=== PATIENT | male | born 1965 | race Caucasian/White ===

== ENCOUNTER 2017-08-26 11:43 | Emergency (ER) | payer OTHER, BC ==
[2017-08-26] MEDS: HYDROcodone/APAP 5/325MG 1 TAB TABLET PO (12:40)
== END 2017-08-26 14:20 | disposition home or self-care (01) ==
LOC: ER 11:43
DX: S82.62XA Displaced fracture of lateral malleolus of left fibula, initial encounter for closed fracture (principal); W17.89XA Other fall from one level to another, initial encounter; Y93.89 Activity, other specified; Y99.8 Other external cause status; Y92.89 Other specified places as the place of occurrence of the external cause
CPT/HCPCS: 29515; 73610; 99284-25